=== PATIENT | female | born 1990 | race Hispanic/Latino ===

== ENCOUNTER 2019-08-13 03:32 | Inpatient (IN) | payer OTHER ==
[~2019-08-13 03:32] MED LIST: Ringers Lactate 1,000 ML IV PRN
--- OUTSIDE RECORDS SUMMARY | 2019-08-13 03:35 | XMS REPORT ---
:1990 [facility] Organization [facility] Address [address] [place] [address] Dr. Fernandez [address] [place] [id number] Care Team Providers Name Role Phone Unavailable Unavailable Unavailable Payers Payer Name Policy Type Policy Number Effective Date Expiration Date Problems This patient has no known problems. Allergies, Adverse Reactions, Alerts Allergy Name Allergy Status Severity Reaction(s) Onset Inactive Treating Comments Type Date Date Clinician Penicillins DA Active U 2018-05 00:00:0 0 Medications This patient has no known medications.
[2019-08-13] MEDS ORDERED: BUTORPHANOL 1 MG/ML INJ IV ONE (03:39)
[2019-08-13] MEDS ORDERED: PROMETHAZINE INJ 25 MG/ML AMP IV PRN (03:39)
[2019-08-13] MEDS ORDERED: OXYTOCIN/LR 20 UNIT/1,000 ML BAG IV SCH ×2 (04:00→07:00)
[2019-08-13] MEDS ORDERED: Ringers Lactate 1,000 ML IV SCH (04:00)
[2019-08-13 04:25] VITALS: BMI 34.0
[2019-08-13] MEDS ORDERED: FENTANYL CITR 100 MCG/2 ML IV ONE (04:35)
[2019-08-13] MEDS ORDERED: ROPIVACAINE HCL 100 ML IV PRN (04:35)
[2019-08-13] MEDS ORDERED: ROPIVACAINE HCL 0.2% 20ML AMP SQ ONE (04:38)
[2019-08-13] MEDS ORDERED: FENTANYL CITR 100 MCG/2 ML ONE (04:39)
[2019-08-13] MEDS ORDERED: ROPIVACAINE HCL 20 ML ONE (04:39)
[2019-08-13] MEDS ORDERED: FENTANYL/BUPIVACAINE/NS/PF 200 MCG/100 ML BAG EP ONE (04:40)
[2019-08-13 04:43] LABS: Absolute Lymphocytes (CBC) 3.3 K/uL (0.7-4.9); Basophils % 0.3 % (0-1.3); Hematocrit 36.1 % (36.0-45.0); Lymphocytes % 32.9 % (15.3-44.8); MPV 10.9 fL (7.6-11.3); RBC Red Blood Cell Count 4.31 M/uL (3.86-4.86)
[2019-08-13 04:57] LABS: RPR (Rapid Plasma Reagin) NON-REACT (NON-REACT)
[2019-08-13] MEDS ORDERED: CARBOPROST TROME 250 MCG/ML IM ONE (06:42)
[2019-08-13] MEDS ORDERED: METHYLERGONOVINE 0.2MG/ML AMP IM ONE (06:42)
[2019-08-13] MEDS ORDERED: ONDANSETRON 4 MG (ODT) TAB PO PRN (06:52)
[2019-08-13] MEDS ORDERED: ACETAMINOPHEN 500 MG TAB PO PRN (06:52)
[2019-08-13] MEDS ORDERED: METHYLERGONOVINE 0.2 MG TAB PO PRN (06:52)
[2019-08-13] MEDS ORDERED: METHYLERGONOVINE 0.2MG/ML AMP IM PRN (06:52)
[2019-08-13] MEDS ORDERED: CARBOPROST TROME 250 MCG/ML IM PRN (06:52)
--- NOTE | 2019-08-13 06:57 | P.BOP ---
Preoperative diagnosis: 39 week , labor, gestational DM Postoperative diagnosis: same, viable male Primary procedure: SCVD viable male infant Secondary procedure: repair, first degree perineal laceration Estimated blood loss: Less than 50ml Anesthesia: epidural Complications: None Transferred to: Other ([phone])
--- NOTE | 2019-08-13 14:40 | PREOPHP ---
Date of Admission: 08/13/2019 History Of Present Illness: Mrs. Amos is a 28-year-old female, 3, para 2-0-0-2, now at 39 weeks' gestation, who will be admitted for induction of labor secondary to term p regnancy, favorable cervix, and gestational diabetes. She has been followed by me during this pregna ncy since early without significant complications other than the development of gestational diabetes. She currently is on glyburide 1.25 mg twice daily with good sugar control. Past Medical History: Please see record. Family History: Please see record. Review of Systems: She reports no recent cough, cold, fever, or chills. No recent nausea or vomiting. No breast knots or lumps. No bowel or bladder issues. has been active. Physical Examination: General: Reveals a pleasant female, in no apparent distress. Neck: Supple without adenopathy or thyromegaly. Lungs: Clear. Cardiac: Regular rate and rhythm without murmurs. Breasts: Not examined. Abdomen: Estimated weight of 7+ pounds. Pelvic: Cervix noted to be 2 cm, 50% effaced, vertex, and -1 to -2 station. Extremities: No cyanosis, clubbing, or edema. Impression: A 39-week , gestational diabetes. Plan: Patient will be admitted for induction of labor. The risks and benefits are discussed, she lester s signed operative permit in my presence. DONY/MARQUITA Voice ID: [id number]
[2019-08-13] MEDS: IBUPROFEN 200 MG TAB PO PRN (20:05)
[2019-08-14] MEDS: IBUPROFEN 200 MG TAB PO PRN (07:35)
[2019-08-14 08:56] VITALS: BP 109/83; TEMP 98.3
--- NOTE | 2019-08-15 03:42 | DS ---
Date of Discharge: 08/14/2019 Final Hospital Discharge Diagnoses: 1.39 plus week , delivered. 2.Gestational diabetes, on glyburide. Complications: None. Procedures: Artificial rupture membranes, placement of epidural catheter, spontaneous controlled vag inal delivery of viable female , repair of first-degree perineal laceration. Hospital Course: The patient is a 28-year-old female, 2, para 1-0-0-1, followed by me during this without complications other than a history of anemia and gestational diabete s, controlled on glyburide. She presented 1 day prior to scheduled induction at 39 plus weeks gestat ion, active labor. She had an uneventful labor and delivery of a 6-pound 3-ounce female , Apga r 9 and 9 with epidural anesthesia. She was dismissed on the first day, ambulatory, on a select diet with routine post vaginal delivery activity restrictions, to be seen back in my office in 1 week. She was dismissed to discontinue her glyburide, to continue taking her sugars, to stay on h er ADA diet. Lab work obtained during this hospital stay included an admission hemoglobin and hemato crit of 12.1 and 36.1, dismissal hematocrit of 35.0. She an is Rh positive blood type. She was dism issed to take ibuprofen or Tylenol for pain relief, to continue taking her iron and vitamins . DONY/MARQUITA Voice ID: [id number] Report ID: [id number]
--- NOTE | 2019-08-15 08:51 | DN ---
Surgeon: Morgan Tellez MD Ms. Amos is a 28-year-old female 2, para 1-0-0-1, now at 39 weeks gestation, ad mitted in active labor. She had a first stage of labor of 3 hours and 21 minutes, second stage of la bor of 5 minutes. After epidural placement, artificial rupture of membranes was performed. Clear fl uid noted. She proceeded rapidly to complete cervical dilatation. She had a spontaneous controlled vaginal delivery of a 6-pound 3-ounce female , at vertex OA presentation. The cord was clamped , cut, and the infant placed in a warmer. Cord blood was obtained. The placenta was spontaneously e xpelled and appeared to be intact. She suffered first-degree perineal laceration repaired with 1 fig ymy-wh-whhke suture of 3-0 Vicryl. Quantitative blood loss was 29 mL. Patient tolerated all procedu res well after and had epidural placement after receiving 1 mg of Stadol and 12.5 mg of Phenergan. DONY/MARQUITA Voice ID: [id number] Report ID: [id number]
[2019-08-16 20:52] LABS: HBsAG Nonreactive (Nonreactive)
== END 2019-08-14 10:35 | disposition home or self-care (01) | DRG 807 ==
LOC: 2ND-WC 03:32
PROVIDERS: ADMIT Specialist; ATTEND Specialist
PROC: 0HQ9XZZ Repair Perineum Skin, External Approach (ICD-10-PCS; principal; 2019-08-13)
PROC: 10E0XZZ Delivery of Products of Conception, External Approach (ICD-10-PCS; 2019-08-13)
DX: O24.425 Gestational diabetes mellitus in childbirth, controlled by oral hypoglycemic drugs (principal); Z37.0 Single live birth; O70.0 First degree perineal laceration during delivery; Z3A.39 39 weeks gestation of pregnancy
CPT/HCPCS: 36415; 82947; 85014; 85025; 86592; 86901; 87340; J0595; J2210; J2550; J2590; J3010; J7120

== ENCOUNTER 2021-04-01 18:33 | Emergency (ER) | payer OTHER, SELFPAY ==
--- OUTSIDE RECORDS SUMMARY | 2021-04-01 18:36 | XMS REPORT | Continuity of Care Document ---
:1990 Author Organization [facility] t Address [address] Fernandez [address] [place] [address] Care Team Providers Name Role Phone Unavailable Unavailable Unavailable Payers Payer Name Policy Type Policy Number Effective Date Expiration Date S ource Problems This patient has no known problems. Allergies, Adverse Reactions, Alerts Allergy Allergy Status Severity Reaction(s) Onset Inactive Treating Comm ents Source Name Type Date Date Clinician Penicill DA Active U 2017-08 [facility] Medications This patient has no known medications. Procedures This patient has no known procedures. Results This patient has no known results.
[2021-04-01 19:52] LABS: Urine Blood Trace-lysed (Negative); Urine Glucose Negative (Negative); Urine Protein Negative (Negative); Urine Specific Gravity 1.015 (1.005-1.030); Urine pH 6.5 (5.0-7.0)
[2021-04-01 20:18] LABS: Protime INR 1.03
[2021-04-01 20:20] LABS: Absolute Lymphocytes (CBC) 4.1 K/uL (0.7-4.9); Basophils % 0.5 % (0-1.3); Hematocrit 42.7 % (36.0-45.0); Lymphocytes % 43.9 % (15.3-44.8); MPV 9.3 fL (7.6-11.3); RBC Red Blood Cell Count 4.94 M/uL (3.86-4.86)
[2021-04-01 20:21] LABS: ALT/SGPT 18 U/L (12-78); AST/SGOT 11 U/L (15-37); Albumin 4.4 g/dL (3.4-5.0); Alkaline Phosphatase 139 U/L (45-117); BUN Blood Urea Nitrogen 10 mg/dL (7-18); Bicarbonate 29 mmol/L (21-32); Bilirubin Direct < 0.1 mg/dL (0-0.2); Bilirubin Total 0.1 mg/dL (0.2-1.0); Glucose Level 95 mg/dL (74-106); Magnesium 2.2 mg/dL (1.8-2.4); NT PRO-BNP 14 pg/mL (<125); Protein, Total 9.2 g/dL (6.4-8.2); Sodium Level 139 mmol/L (136-145); Troponin (Emerg Dept Use Only) < 0.02 ng/mL (0.0-0.045)
--- NOTE | 2021-04-01 21:25 | RAD REPORT ---
EXAM DESCRIPTION: RAD - Chest Single View - 04/01/2021 8:32 pm CLINICAL HISTORY: CHEST PAIN COMPARISON: August 2012 TECHNIQUE: AP portable chest image was obtained 04/01/2021 8:32 pm . FINDINGS: Lungs are clear. Heart and vasculature are normal. No measurable pleural effusion and no p neumothorax. No acute bony abnormality seen. No acute aortic findings suspected. IMPRESSION: No acute cardiopulmonary process.
[2021-04-01 21:47] LABS: Urine Specific Gravity/Preg 1.015 (1.005-1.030)
--- NOTE | 2021-04-02 03:07 | ER ---
Nurse's Notes [facility] Name: Adriana Amos Age: 30 yrs Sex: Female : 1990 Arrival Date: 04/01/2021 Time: 19:31 Bed 13 Private MD: Diagnosis: Chest pain, unspecified Presentation: 04/01 19:34 Chief complaint: Patient states: Chest pain starting at 18:30 that was 10 out of 10 but kg since resolved. Pt had similar chest pain in the past and was diagnosed with pleurisy. Coronavirus screen: Vaccine status: Patient reports receiving the 2nd dose of the covid vaccine. Date September 2020 Patient reports receiving the 1st dose of the Covid vaccine. Date September 2020. Ebola Screen: Patient negative for fever greater than or equal to 101.5 degrees Fahrenheit, and additional compatible Ebola Virus Disease symptoms Patient denies exposure to infectious person. Patient denies travel to an Ebola-affected area in the 21 days before illness onset. Initial Sepsis Screen: Does the patient meet any 2 criteria? No. Patient's initial sepsis screen is negative. Does the patient have a suspected source of infection? No. Patient's initial sepsis screen is negative. Risk Assessment: Do you want to hurt yourself or someone else? Patient reports no desire to harm self or others. Onset of symptoms was April 01, 2021 at 18:30. 19:34 Method Of Arrival: Ambulatory kg 19:34 Acuity: MARTINEZ 3 kg Triage Assessment: 19:39 General: Appears in no apparent distress. Behavior is calm, cooperative, appropriate kg for age, quiet. Pain: Complains of pain in Chest Pain radiates to Left shoulder, Left side of neck Pain currently is 0 out of 10 on a pain scale. at worst was 10 out of 10 on a pain scale. level that patient reports is acceptable is 3 out of 10 on a pain scale. Cardiovascular: Reports chest pain. 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 - Social history:: Smoking status: Patient denies any tobacco usage or history of. Patient uses alcohol, occasionally. Screenin:42 Abuse screen: Denies threats or abuse. Denies injuries from another. Nutritional kg screening: No deficits noted. Tuberculosis screening: No symptoms or risk factors identified. Fall Risk None identified. Assessment: 23:13 Pain: Pain began 2 hours ago. Cardiovascular: Reports chest pain, Heart tones S1 S2 lh3 present Capillary refill < 3 seconds Patient's skin is warm and dry. Chest pain radiates to left scapula. Vital Signs: 19:34 BP 111 / 83; Pulse 81; Resp 20; Pulse Ox 97% on R/A; Weight 79.38 kg (R); Height 5 ft. kg 1 in. (154.94 cm) (R); Pain 0/10; 23:13 BP 100 / 79; Pulse 80; Resp 18; Pulse Ox 100% on R/A; lh3 04/02 03:20 BP 100 / 80 LA (auto/reg); Pulse 77 MON; Resp 16 S; Temp 97.9(O); Pulse Ox 100% on R/A; kc4 Pain 0/10; 04/01 19:34 Body Mass Index 33.07 (79.38 kg, 154.94 cm) kg ED Course: 04/01 19:31 Patient arrived in ED. cf2 19:39 Triage completed. kg 19:39 Arm band placed on right wrist. kg 19:42 Patient has correct armband on for positive identification. kg 20:01 EKG done, by ED staff, reviewed by Federico Kyle MD. tt3 20:32 XRAY Chest (1 view) In Process Unspecified. EDMS 22:41 Dawson Cuevas PA is PHCP. jm 22:41 Federico Kyle MD is Attending Physician. jm 22:45 Monserrat Almanza, SERAFIN is Primary Nurse. lh3 23:13 Pulse ox on. NIBP on. lh3 23:13 No provider procedures requiring assistance completed. Patient maintains SpO2 lh3 saturation greater than 95% on room air. 23:49 CT Chest For PE Angio In Process Unspecified. EDMS 04/02 03:20 IV discontinued, intact, bleeding controlled, No redness/swelling at site. kc4 Administered Medications: No medications were administered Outcome: 03:07 Discharge ordered by . gilles 03:20 Discharged to home ambulatory, with family. kc4 03:20 Condition: improved 03:20 Discharge instructions given to patient, family, Instructed on discharge instructions, follow up and referral plans. medication usage, Demonstrated understanding of instructions, follow-up care, medications, Prescriptions given X 1. 03:21 Patient left the ED. kc4 Signatures: Dispatcher [employer] EDMS Dawson Cuevas PA PA jmm Frazier, Celesta cf2 Mario Alberto Parker tt3 Virginia Ahmadi, RN RN Monserrat Decker RN RN 3 Jennifer Rosales kc4
--- NOTE | 2021-04-02 03:07 | EDPHYS ---
Physician Documentation [facility] Name: Adriana Amos Age: 30 yrs Sex: Female : 1990 Arrival Date: 04/01/2021 Time: 19:31 Bed 13 Private MD: CHARI Physician Federico Kyle HPI: 04/02 02:50 This 30 yrs old Female presents to ER via Ambulatory with complaints of Chest jmm Pain. 02:50 The patient or guardian reports chest pain that is located primarily in the substernal jmm area. The pain does not radiate. Associated signs and symptoms: Pertinent positives: shortness of breath. The chest pain is described as aching. Duration: The patient or guardian reports a single episode, that is now resolved. Modifying factors: The symptoms are alleviated by nothing. the symptoms are aggravated by nothing. The patient has experienced a previous episode, diagnosed with pleurisy. 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 - Social history:: Smoking status: Patient denies any tobacco usage or history of. Patient uses alcohol, occasionally. ROS: 04/02 02:50 Constitutional: Negative for fever, chills, and weight loss. jmm Neck: Positive for Cardiovascular: Positive for chest pain. All other systems are negative. Exam: 02:50 Constitutional: This is a well developed, well nourished patient who is awake, alert, jmm and in no acute distress. Head/Face: atraumatic. Eyes: EOMI, no conjunctival erythema appreciated ENT: Moist Mucus Membranes Neck: Trachea midline, Supple Chest/axilla: Normal chest wall appearance and motion. Cardiovascular: Regular rate and rhythm. No edema appreciated Respiratory: Normal respirations, no respiratory distress appreciated Abdomen/GI: Non distended, soft Back: Normal ROM Skin: General appearance color normal MS/ Extremity: Moves all extremities, no obvious deformities appreciated, no edema noted to the lower extremities Neuro: Awake and alert, normal gait Vital Signs: 04/01 19:34 BP 111 / 83; Pulse 81; Resp 20; Pulse Ox 97% on R/A; Weight 79.38 kg (R); Height 5 ft. kg 1 in. (154.94 cm) (R); Pain 0/10; 23:13 BP 100 / 79; Pulse 80; Resp 18; Pulse Ox 100% on R/A; lh3 04/02 03:20 BP 100 / 80 LA (auto/reg); Pulse 77 MON; Resp 16 S; Temp 97.9(O); Pulse Ox 100% on R/A; kc4 Pain 0/10; 04/01 19:34 Body Mass Index 33.07 (79.38 kg, 154.94 cm) kg MDM: 04/01 22:47 Patient medically screened. [facility] 04/02 03:06 Data reviewed: vital signs, nurses notes. Counseling: I had a detailed discussion with gilles the patient and/or guardian regarding: the historical points, exam findings, and any diagnostic results supporting the discharge/admit diagnosis, radiology results, the need for outpatient follow up, to return to the emergency department if symptoms worsen or persist or if there are any questions or concerns that arise at home. ED course: Low likelihood of ACS. CTA negative. Patient advised follow-up PCP and otherwise given strict return precautions. Patient understood and agrees to plan of care. 04/01 19:43 Order name: Basic Metabolic Panel; Complete Time: 22:48 kg 04/01 19:43 Order name: CBC with Diff; Complete Time: 22:48 kg 04/01 19:43 Order name: LFT's; Complete Time: 22:48 kg 04/01 19:43 Order name: Magnesium; Complete Time: 22:48 kg 04/01 19:43 Order name: NT PRO-BNP; Complete Time: 22:48 kg 04/01 19:43 Order name: PT-INR; Complete Time: 22:48 kg 04/01 19:43 Order name: Troponin (emerg Dept Use Only); Complete Time: 22:48 kg 04/01 19:43 Order name: XRAY Chest (1 view); Complete Time: 22:48 kg 04/01 19:43 Order name: EKG; Complete Time: 19:44 kg 04/01 19:43 Order name: Cardiac monitoring; Complete Time: 22:57 kg 04/01 19:43 Order name: EKG - Nurse/Tech; Complete Time: 19:43 kg 04/01 19:51 Order name: Urine Dipstick-Ancillary; Complete Time: 22:48 EDMS 04/01 19:57 Order name: Urine --Ancillary (enter results); Complete Time: 22:48 mw2 04/01 23:24 Order name: CT Chest For PE Angio jm 04/01 19:43 Order name: IV Saline Lock; Complete Time: 22:57 kg 04/01 19:43 Order name: Labs collected and sent; Complete Time: 22:56 kg 04/01 19:43 Order name: O2 Per Protocol; Complete Time: 22:56 kg 04/01 19:43 Order name: O2 Sat Monitoring; Complete Time: 22:56 kg Administered Medications: No medications were administered Disposition: 07:19 Co-signature as Attending Physician, Federico Kyle MD I agree with the assessment and alisa plan of care. Disposition Summary: 04/02/21 03:07 Discharge Ordered Location: Home [facility] Condition: Stable jm Diagnosis - Chest pain, unspecified jmm Followup: jmm - With: Private Physician - When: 2 - 3 days - Reason: Recheck today's complaints, Continuance of care, Re-evaluation by your physician Discharge Instructions: - Discharge Summary Sheet [facility] - Nonspecific Chest Pain, Adult jmm Forms: - Medication Reconciliation Form [facility] - Thank You Letter [facility] - Antibiotic Education [facility] - Prescription Opioid Use [facility] Prescriptions: - orphenadrine citrate 100 mg Oral Tablet Sustained Release - take 1 tablet by ORAL route 2 times per day As needed; 20 tablet; Refills: 0, [facility] Product Selection Permitted Signatures: Dispatcher [employer] Federico Stover MD MD cha Mickail, Joel, PA PA Virginia Medley, RN RN kg
[2021-04-02 03:28] VITALS: O2SAT 100
[2021-04-02 03:30] VITALS: BP 100/80; TEMP 97.9
--- NOTE | 2021-04-02 12:32 | RAD REPORT ---
EXAM DESCRIPTION: CT - Chest For Pe Angio - 04/02/2021 6:37 am COMPARISON None. CLINICAL HISTORY: [facility] MAIN CHEST PAIN TECHNIQUE: CT images through the chest with IV contrast using the pulmonary embolus protocol. Multip lanar reformats. MIPS reformats are provided. Automated exposure control was utilized on this exami nation as a dose lowering technique. FINDINGS: Pulmonary arteries and vascular: Diagnostic quality bolus. No filling defects. Heart and mediastinum: Heart size is normal. No lymphadenopathy. Thyroid gland: Visualized portions are normal. Lungs: Clear. Airways: No filling defects. No bronchiectasis. Pleura: No pneumothorax. No significant pleural effusion. Subphrenic structures: Within normal limits. Musculoskeletal and soft tissues: Within normal limits for age. IMPRESSION: No evidence of pulmonary embolus or other acute chest process. Electronically signed by: Wesley Desai MD 04/02/2021 3:01 AM CDT Due to temporary technical issues with the PACS/Fluency reporting system, reports are being signed by the in house radiologists without review as a courtesy to insure prompt reporting. The interpreting radiologist is fully responsible for the content of the report.
== END 2021-04-02 03:21 | disposition home or self-care (01) ==
LOC: ER 18:33
DX: R07.9 Chest pain, unspecified (principal); Z88.0 Allergy status to penicillin; Z88.1 Allergy status to other antibiotic agents
CPT/HCPCS: 36415; 71045; 71275; 80048; 80076; 81003; 81025; 83735; 83880; 84484; 85025; 85610; 93005; 99284; Q9967